=== PATIENT | female | born 1995 | race Caucasian/White ===

== ENCOUNTER 2019-11-03 05:30 | Emergency (ER) | payer BC, OTHER ==
[~2019-11-03] VITALS: Ht 160 cm; Wt 68.2 kg
[~2019-11-03 05:30] MED LIST: ACHD5005 PO; NORE-4 PO
--- OUTSIDE RECORDS SUMMARY | 2019-11-03 05:36 | XMS REPORT | Continuity of Care Document ---
Author Organization Unknown Address Unknown Phone Unavailable Allergies Active Description Code Type Severity Reaction Onset Reported/Identified Relationship to Patient Clinical Status Yes SULFA SULFA Unknown N/A 10/01/2013 Medications There is no data. Problems Date Dx Coded Attending Type Code Diagnosis Diagnosed By 10/02/2013 JAROD SHANE, TEJA Martínez Ot 540.9 Procedures There is no data. Results There is no data. Encounters ACCT No. Visit Date/Time Discharge Status Pt. Type Provider Facility Loc./Unit Complaint [id number] 02/21/2019 09:03:00 019 23:59:59 CLS Preadmit JOHNNY SANTIZO V [facility] RAD ENLARGED THYROID [id number] 10/01/2013 10:48:00 014 10:15:00 DIS Inpatient JAROD SHANE, TEJA Martínez Via [facility] 4TH
--- NOTE | 2019-11-03 05:44 | ED Chest Pain ---
General Chief Complaint: General Problems/Pain Stated Complaint: SOB,CP,SHAKES Source: patient Exam Limitations: no limitations (ELAYNE BERMEO) History of Present Illness Date Seen by Provider: Nov 03, 2019 Time Seen by Provider: 05:33 Initial Comments Patient resents ER by private conveyance with chief complaint of chest pain shortness of breath and tightness in her chest and momentary nausea but woke her from sleep about 3:30 in the morning. It started getting worse just before they headed out to the ER and started to improve by the time she arrived here. Her grandparents who she lives with wanted her to get it checked out. She does not have a history of coronary disease, heart disease, pericarditis, lung disease but she does have a history of generalized anxiety disorder with occasional panic attacks. She's never had one this bad nor has one of her woke her up from sleep. She's having no abdominal pain or nausea now. No fevers chills cough shortness of breath sweats, travel, recent stressful situations. Yesterday she had a couple beers with friends and occasionally smokes cannabis. She is on control from [employer]. No palpitations or flutters or feeling like she was going to pass out. She has no swelling in her legs, pain in her calves, periods of inactivity or recent surgeries. No history of malignancy. Historically she's had her appendix out. (ELAYNE BERMEO) Allergies and Home Medications Allergies Uncoded Allergies: SULFA (Allergy, Unknown, 10/01/13) Home Medications Hydrocodone Bit/Acetaminophen 1 Tab Tab, 1-2 TAB PO Q4H PRN for PAIN Prescribed by: LINDA HUTCHISON on 10/02/13 0946 Noreth-Ethinyl Estradiol/Iron 1 Each Tab.chew, 1 TAB PO DAILY, (Reported) Patient Home Medication List Home Medication List Reviewed: Yes (ELAYNE BERMEO) Review of Systems Review of Systems Constitutional: No chills, No diaphoresis EENTM: No Blurred Vision, No Double Vision Respiratory: Denies Cough; Shortness of Air Cardiovascular: Chest Pain; Denies Edema, Denies Irregular Heart Rate, Denies Lightheadedness, Denies Palpitations, Denies Syncope Gastrointestinal: See HPI; Denies Abdominal Pain, Denies Constipated, Denies Diarrhea, Denies Nausea, Denies Vomiting Genitourinary: Denies Burning, Denies Discharge Musculoskeletal: No back pain, No joint pain Psychiatric/Neurological: See HPI, Anxiety; Denies Depressed, Denies Headache, Denies Numbness, Denies Paresthesia (ELAYNE BERMEO) All Other Systems Reviewed Negative Unless Noted: Yes (ELAYNE BERMEO) Past Ljbuflg-Cfgmjz-Cpkwdt Hx Patient Social History Alcohol Use: Occasionally Uses Alcohol Beverage of Choice: Beer Recreational Drug Use: Yes Drug of Choice: cannabis Smoking Status: Former Smoker Recent Foreign Travel: No Contact w/Someone Who Travel: No (ELAYNE BERMEO) Family Medical History Family history: Allergy 19 MOTHER Family history: Hypertension 19 MOTHER No Family History of: Abdominal aortic aneurysm [place]'s disease Alcoholism Aphasia Cancer Cancer of colon Cataract Chest pain Congenital heart disease Congestive heart failure Cystic fibrosis Dementia Dysphagia Family history: Alzheimer's disease Family history: Arthritis Family history: Asthma Family history: Breast disease Family history: Cardiovascular disease Family history: Coronary thrombosis Family history: Diabetes mellitus Family history: Gastrointestinal disease Family history: Glaucoma Family history: Osteoporosis Family history: Thyroid disorder Headache Hearing loss Heart disease Hereditary disease History of - anemia History of - disorder History of - respiratory disease History of drug abuse Human immunodeficiency virus (HIV) seropositivity Hypercholesterolemia Infertile Kidney disease Malignant neoplasm of lung Myocardial infarction Parkinson's disease Prostate cancer Psychotic disorder Seizure disorder Stroke Tuberculosis Visual impairment Physical Exam Vital Signs Vital Signs - First Documented 11/03/19 05:40 Temp 36.7 Pulse 110 Resp 20 B/P (MAP) 130/70 (90) Pulse Ox 99 O2 Delivery Room Air (LING GILMORE MD) Vital Signs Capillary Refill : (ELAYNE BERMEO) Height, Weight, BMI Height: 5'0.00" Weight: 119lbs. 4.0oz. 54.564572mb; BMI Method: General Appearance: WD/WN, Anxious, Mild Distress HEENT: PERRL/EOMI, Pharynx Normal, Moist Mucous Membranes Neck: Full Range of Motion, Normal Inspection, Non Tender, Supple Respiratory: Lungs Clear, Normal Breath Sounds, No Accessory Muscle Use, No Respiratory Distress Cardiovascular: Regular Rate, Rhythm, Normal Peripheral Pulses, Tachycardia (110) Gastrointestinal: Normal Bowel Sounds, Non Tender, Soft Extremity: Normal Capillary Refill, Normal Inspection, No Pedal Edema Neurologic/Psychiatric: Alert, Oriented x3, No Motor/Sensory Deficits, lining baster II- XII Norm as Tested, Other (anxious affect) Skin: Normal Color, Warm/Dry (ELAYNE BERMEO) Progress/Results/Core Measures Results/Orders Lab Results Laboratory Tests Test 11/03/19 05:44 Range/Units White Blood Count 7.8 4.3-11.0 10^3/uL Red Blood Count 4.73 4.35-5.85 10^6/uL Hemoglobin 15.0 11.5-16.0 G/DL Hematocrit 44 35-52 % Mean Corpuscular Volume 93 80-99 FL Mean Corpuscular Hemoglobin 32 25-34 PG Mean Corpuscular Hemoglobin Concent 34 32-36 G/DL Red Cell Distribution Width 12.9 10.0-14.5 % Platelet Count 338 130-400 10^3/uL Mean Platelet Volume 9.3 7.4-10.4 FL Neutrophils (%) (Auto) 36 L 42-75 % Lymphocytes (%) (Auto) 54 H 12-44 % Monocytes (%) (Auto) 7 0-12 % Eosinophils (%) (Auto) 2 0-10 % Basophils (%) (Auto) 1 0-10 % Neutrophils # (Auto) 2.8 1.8-7.8 X 10^3 Lymphocytes # (Auto) 4.2 H 1.0-4.0 X 10^3 Monocytes # (Auto) 0.5 0.0-1.0 X 10^3 Eosinophils # (Auto) 0.1 0.0-0.3 10^3/uL Basophils # (Auto) 0.1 0.0-0.1 10^3/uL D-Dimer 0.37 0.00-0.49 UG/ML Sodium Level 139 135-145 MMOL/L Potassium Level 3.6 3.6-5.0 MMOL/L Chloride Level 102 98-107 MMOL/L Carbon Dioxide Level 21 21-32 MMOL/L Anion Gap 16 H 5-14 MMOL/L Blood Urea Nitrogen 10 7-18 MG/DL Creatinine 0.82 0.60-1.30 MG/DL Estimat Glomerular Filtration Rate > 60 BUN/Creatinine Ratio 12 Glucose Level 112 H 70-105 MG/DL Calcium Level 9.6 8.5-10.1 MG/DL Corrected Calcium 9.2 8.5-10.1 MG/DL Total Bilirubin 0.4 0.1-1.0 MG/DL Aspartate Amino Transf (AST/SGOT) 34 5-34 U/L Alanine Aminotransferase (ALT/SGPT) 48 0-55 U/L Alkaline Phosphatase 55 40-136 U/L Troponin I < 0.028 <0.028 NG/ML C-Reactive Protein High Sensitivity 0.34 0.00-0.50 MG/DL Total Protein 7.7 6.4-8.2 GM/DL Albumin 4.5 3.2-4.5 GM/DL (LING GILMORE MD) Vital Signs/I&O 11/03/19 05:40 Temp 36.7 Pulse 110 Resp 20 B/P (MAP) 130/70 (90) Pulse Ox 99 O2 Delivery Room Air (LING GILMORE MD) Progress Progress Note : Time: 05:49 Progress Note The patient appears anxious and has a history of generalized anxiety with panic disorder. It is unusual that panic disorder would wake someone from sleep however. Her tachycardia is also concerning so we'll observe that. This examiner left the room after the initial interview and allow the nurses to obtain the EKG and her tachycardia resolved within 10 minutes from 110 down to 80s. She is still having some chest tightness but no clinical evidence for a DVT. Because of her hormone use and she only recently quit smoking last week we did apply the Well's score of 1.5 for PE. She had 2 PERC criteria so while she is considered low risk less than 1.5% we will collect a d-dimer. Chest x-ray and troponin can help rule out pneumonia, myocarditis/pericarditis. She does not want anything for her discomfort at this time. (ELAYNE BERMEO) Progress Note : Progress Note 0628: I have reviewed the labs and x-ray and have reexamined the patient. Overall she is feeling much better. D-dimer is negative. Heart rate is in the 90s now. She did spend some time at [place] yesterday and in the sun. She may have component of dehydration. That being said she feels back to normal now and there are no concerning findings so we'll discharge her home. I did discuss with her about return precautions and follow-up. Patient verbalize understanding instructions and agreement with plan. (LING GILMORE MD) Initial ECG Impression Date: Nov 03, 2019 Initial ECG Impression Time: 05:40 Initial ECG Rate: 82 Initial ECG Rhythm: Normal Sinus Initial ECG Intervals: Normal Initial ECG Impression: Normal Initial ECG Comparisson: No Previous ECG Available Comment Normal sinus rhythm without clinically relevant ST-T wave changes. (ELAYNE BERMEO) Diagnostic Imaging Diagonstic Imaging: Xray Plain Films/CT/US/NM/MRI: chest (1v) Reviewed: Reviewed by Me (ELAYNE BERMEO) Comments no acute findings (LING GILMORE MD) Transfer of Care Time: 06:00 Care transferred to: Dr. Gilmore (ELAYNE BERMEO) Departure Impression Primary Impression: Chest pain Qualified Codes: R07.9 - Chest pain, unspecified Additional Impression: Palpitations Disposition: HOME, SELF-CARE Condition: Improved Departure-Patient Inst. Decision time for Depature: 06:31 (LING GILMORE MD) Referrals: NO,LOCAL PHYSICIAN (PCP/Family) Primary Care Physician Patient Instructions: Chest Pain (DC), Palpitations (DC) Add. Discharge Instructions: All discharge instructions reviewed with patient and/or family. Voiced understanding. Follow-up with your DrDeyanira in a few days for recheck and further evaluation. You may be a little dehydrated so you should try to drink a little extra fluid today. Return to normal diet. Return for worse pain, fever, vomiting, weakness, breathing problems or other concerns as needed. ELAYNE BERMEO Nov 03, 2019 05:44 LING GILMORE MD Nov 03, 2019 06:32
[2019-11-03 05:52] LABS: BASOPHILS # (AUTO) 0.1 10^3/uL (0.0-0.1); BASOPHILS % (AUTO) 1 % (0-10); EOSINOPHILS # (AUTO) 0.1 10^3/uL (0.0-0.3); EOSINOPHILS % (AUTO) 2 % (0-10); HEMATOCRIT 44 % (35-52); LYMPHOCYTES # (AUTO) 4.2 X 10^3 (1.0-4.0); LYMPHOCYTES % (AUTO) 54 % (12-44); MEAN CORPUSCULAR HEMOGLOBIN 32 PG (25-34); MEAN CORPUSCULAR HGB CONC 34 G/DL (32-36); MEAN CORPUSCULAR VOLUME 93 FL (80-99); MEAN PLATELET VOLUME 9.3 FL (7.4-10.4); MONOCYTES # (AUTO) 0.5 X 10^3 (0.0-1.0); MONOCYTES % (AUTO) 7 % (0-12); NEUTROPHILS # (AUTO) 2.8 X 10^3 (1.8-7.8); NEUTROPHILS % (AUTO) 36 % (42-75); PLATELET COUNT 338 10^3/uL (130-400); RED CELL DISTRIBUTION WIDTH 12.9 % (10.0-14.5); WHITE BLOOD COUNT 7.8 10^3/uL (4.3-11.0)
[2019-11-03 06:00] LABS: ALBUMIN 4.5 GM/DL (3.2-4.5); CHLORIDE 102 MMOL/L (98-107); POTASSIUM 3.6 MMOL/L (3.6-5.0); SODIUM 139 MMOL/L (135-145)
[2019-11-03 06:01] LABS: CALCIUM 9.6 MG/DL (8.5-10.1)
[2019-11-03 06:03] LABS: GLUCOSE 112 MG/DL (70-105); TOTAL PROTEIN 7.7 GM/DL (6.4-8.2)
[2019-11-03 06:04] LABS: BILIRUBIN,TOTAL 0.4 MG/DL (0.1-1.0); CARBON DIOXIDE 21 MMOL/L (21-32)
[2019-11-03 06:06] LABS: ALKALINE PHOSPHATASE 55 U/L (40-136); CREATININE SERUM 0.82 MG/DL (0.60-1.30); GFR ESTIMATED > 60
[2019-11-03 06:07] LABS: BUN/CREATININE RATIO 12
[2019-11-03 06:09] LABS: ALANINE AMINOTRANSFERASE 48 U/L (0-55)
[2019-11-03 06:38] VITALS: BP 125/72
--- NOTE | 2019-11-03 07:13 | Diagnostic Imaging Report ---
INDICATION: Chest pain COMPARISON: None available TECHNIQUE: Single radiograph of the chest dated 11/03/2019. FINDINGS: The cardiac silhouette and pulmonary vasculature within normal limits. The lungs are clear. No pleural effusion. No pneumothorax. No acute osseous abnormality. IMPRESSION: No acute cardiopulmonary abnormality. Dictated by: Dictated on workstation # [id number]
== END 2019-11-03 06:39 | disposition home or self-care (01) ==
LOC: EDUNIT# 05:30 → ER 05:32
DX: R07.9 Chest pain, unspecified (principal); R00.2 Palpitations; Z88.2 Allergy status to sulfonamides; Z87.891 Personal history of nicotine dependence; Z82.49 Family history of ischemic heart disease and other diseases of the circulatory system
CPT/HCPCS: 36415; 71045; 80053; 84484; 84703; 85025; 85379; 86141; 93005

== ENCOUNTER 2022-08-17 14:19 | Inpatient (IN) | payer BC, OTHER ==
[2022-08-17] VITALS (17 sets, daily range): BP systolic 116–162; BP diastolic 60–101
[~2022-08-17] VITALS: Ht 152.4 cm; Wt 92.4 kg
[2022-08-17 14:43] LABS: BILIRUBIN,URINE NEGATIVE (NEGATIVE); CLARITY,URINE CLEAR; COLOR,URINE YELLOW; GLUCOSE, URINE (UA) NEGATIVE (NEGATIVE); KETONES,URINE NEGATIVE (NEGATIVE); LEUKOCYTE ESTERASE ,URINE 1+ (NEGATIVE); NITRITE,URINE NEGATIVE (NEGATIVE); PROTEIN,URINE NEGATIVE (NEGATIVE)
[2022-08-17] MEDS ORDERED: PREN-37 PO (14:45)
[2022-08-17 14:51] LABS: BACTERIA,URINE FEW /HPF
[2022-08-17 15:01] LABS: URINE CREATININE FOR RATIO 33 MG/DL (30-125); URINE PROTEIN FOR RATIO ONLY < 6 MG/DL (6-12)
[2022-08-17 15:04] LABS: BASOPHILS # (AUTO) 0.1 10^3/uL (0.0-0.1); BASOPHILS % (AUTO) 0 % (0-10); EOSINOPHILS # (AUTO) 0.1 10^3/uL (0.0-0.3); EOSINOPHILS % (AUTO) 1 % (0-10); HEMATOCRIT 37 % (35-52); HEMOGLOBIN 12.5 g/dL (11.5-16.0); LYMPHOCYTES % (AUTO) 18 % (12-44); MEAN CORPUSCULAR HEMOGLOBIN 32 pg (25-34); MEAN CORPUSCULAR HGB CONC 34 g/dL (32-36); MEAN CORPUSCULAR VOLUME 92 fL (80-99); MEAN PLATELET VOLUME 9.8 fL (9.0-12.2); MONOCYTES # (AUTO) 0.6 X 10^3 (0.0-1.0); MONOCYTES % (AUTO) 5 % (0-12); NEUTROPHILS # (AUTO) 8.3 X 10^3 (1.8-7.8); NEUTROPHILS % (AUTO) 75 % (42-75); PLATELET COUNT 278 10^3/uL (130-400); WHITE BLOOD COUNT 11.1 10^3/uL (4.3-11.0)
[2022-08-17 15:23] LABS: ALBUMIN 3.2 GM/DL (3.2-4.5); BILIRUBIN,TOTAL 0.8 MG/DL (0.1-1.0); CALCIUM 8.9 MG/DL (8.5-10.1); CREATININE SERUM 0.73 MG/DL (0.60-1.30); POTASSIUM 2.8 MMOL/L (3.6-5.0); TOTAL PROTEIN 6.3 GM/DL (6.4-8.2); URIC ACID 4.6 MG/DL (2.6-7.2)
[2022-08-17] MEDS ORDERED: LIDOCAINE 1% INJ 20 ML VIAL IJ PRN (17:00)
[2022-08-17] MEDS ORDERED: MINERAL OIL 30 ML UDC TOP PRN (17:00)
[2022-08-17] MEDS ORDERED: LIDOCAINE 1% INJ 10 ML VIAL INJ PRN (17:30)
--- NOTE | 2022-08-17 18:20 | History & Physical-OB ---
OB - Chief Complaint & HPI Date/Time Date of Admission: Date of Admission: Aug 17, 2022 at 16:06 Date seen by a Provider: Aug 17, 2022 Time Seen by a Provider: 17:25 Chief Complaint/History OB-Reason for Admission/Chief: Induction of Labor Hx : 1 Hx Para: 0 Hx Last Menstrual Period: 12/05/21 Estimated Date of Conception: 09/05/22 Expected Date of Delivery: Sep 05, 2022 Gestational Age in Weeks: 37 Gestational Age in Days: 2 Indication for induction: medical complication (PREECLAMPSIA WITH SEVERE FEATURES) Other reason for admission: PREECLAMPSIA WITH SEVERE FEATURES Admission Nurse Assessment Rev: Yes History of Labs : MBT O POS PNAS NEG RUBELLA NON-IMMUNE RPR NR HIV NR HBSAG NR HCV NR AFP/MULTIPLE MARKER NEG TSH NORMAL 1 HOUR GLUCOLA 109 UDS NEG PAP NEG GC/CT NEG X 2 GBS NEG TODAY: HCT 37 PLT 278 CR 0.73 K 2.8 AST 80 ALT 176 LDH 205 UA NEGATIVE PROTEIN (P/C NOT RUN DUE TOO LITTLE PROTEIN) Allergies and Home Medications Allergies Uncoded Allergies: SULFA (Allergy, Unknown, 10/01/13) Patient Home Medication List Home Medication List Reviewed: Yes Vit/Iron Fumarate/FA ( Tablet) 27 Mg Iron-800 Mcg Tablet, 1 EACH PO DAILY, (Reported) Entered as Reported by: ELIZABETH RAWLS on 08/17/22 1445 Last Action: New Order Discontinued Medications Hydrocodone Bit/Acetaminophen (Lortab 5 Mg Tablet) 1 Tab Tab, 1-2 TAB PO Q4H PRN for PAIN Discontinued Reason: No Longer Taking Prescribed by: LINDA HUTCHISON on 10/02/13 0946 Last Action: Discontinued Noreth-Ethinyl Estradiol/Iron ([place] Fe Chewable Tablet) 1 Each Tab.chew, 1 TAB PO DAILY, (Reported) Discontinued Reason: No Longer Taking Entered as Reported by: ETIENNE PANDEY on 10/01/13 1302 Last Action: Discontinued OB - History Hx of Present Care: Yes Obstetrical Complications: Pre-eclampsia Information Induced Hypertension: Yes Maternal Gestational Diabetes: No Hemorrhage: No Obstetrical History Hx : 1 Hx Para: 0 Hx Total # of Abortions (Spona: 0 Delivery History Hx Blood Disorders: No Patient Past Medical History THYROID NODULE (NO SURGERY) Social History/Family History Alcohol Use: Denies Use Recreational Drug Use: No 2nd Hand Smoke Exposure: No Immunizations Influenza Vaccine Up-to-Date: Yes; Up-to-Date COVID19 Vaccine [employer]: MODERNA Tetanus Booster (TDap): Less than 5yrs Rubella: not immune RPR/VDRL: Negative GBS Status: Negative HBsAG: Negative OB - Admission Exam Physical Exam Vitals: Vital Signs 08/17/22 08/17/22 14:55 17:02 Temp 37.1 Pulse 90 Resp 18 B/P (MAP) 149/88 Pulse Ox 98 O2 Delivery Room Air HEENT: Moist Membranes Heart: Rhythm Normal Lungs: Clear Abdomen: Gravid Extremities: Edema Reflexes: Hyperreflexia Present Cervical Dilatation: None Effacement: Other (60%) Station: -3 Membranes: Intact Heart Rate: 130's Accelerations: Accelerations Present Decelerations: No Decelerations Short Term Variability: Present Lead Custodian Variability: Average (6-25) Contractions on Admission: 6-10 Minutes Apart Intensity: Mild Labs Laboratory Tests Test 08/17/22 14:35 08/17/22 14:52 Range/Units Urine Color YELLOW Urine Clarity CLEAR Urine pH 7.0 5-9 Urine Specific [place] <=1.005 1.016-1.022 Urine Protein NEGATIVE NEGATIVE Urine Glucose (UA) NEGATIVE NEGATIVE Urine Ketones NEGATIVE NEGATIVE Urine Nitrite NEGATIVE NEGATIVE Urine Bilirubin NEGATIVE NEGATIVE Urine Urobilinogen 0.2 < = 1.0 MG/DL Urine Leukocyte Esterase 1+ H NEGATIVE Urine RBC (Auto) NEGATIVE NEGATIVE Urine RBC NONE /HPF Urine WBC 5-10 H /HPF Urine Squamous Epithelial Cells 10-25 H /HPF Urine Crystals NONE /LPF Urine Bacteria FEW H /HPF Urine Casts NONE /LPF Urine Mucus NEGATIVE /LPF Urine Culture Indicated YES Urine Creatinine 33 30-125 MG/DL Urine Protein/Creatinine Ratio White Blood Count 11.1 H 4.3-11.0 10^3/uL Red Blood Count 3.97 3.80-5.11 10^6/uL Hemoglobin 12.5 11.5-16.0 g/dL Hematocrit 37 35-52 % Mean Corpuscular Volume 92 80-99 fL Mean Corpuscular Hemoglobin 32 25-34 pg Mean Corpuscular Hemoglobin Concent 34 32-36 g/dL Red Cell Distribution Width 13.0 10.0-14.5 % Platelet Count 278 130-400 10^3/uL Mean Platelet Volume 9.8 9.0-12.2 fL Immature Granulocyte % (Auto) 1 % Neutrophils (%) (Auto) 75 42-75 % Lymphocytes (%) (Auto) 18 12-44 % Monocytes (%) (Auto) 5 0-12 % Eosinophils (%) (Auto) 1 0-10 % Basophils (%) (Auto) 0 0-10 % Neutrophils # (Auto) 8.3 H 1.8-7.8 X 10^3 Lymphocytes # (Auto) 2.0 1.0-4.0 X 10^3 Monocytes # (Auto) 0.6 0.0-1.0 X 10^3 Eosinophils # (Auto) 0.1 0.0-0.3 10^3/uL Basophils # (Auto) 0.1 0.0-0.1 10^3/uL Immature Granulocyte # (Auto) 0.1 0.0-0.1 10^3/uL Sodium Level 140 135-145 MMOL/L Potassium Level 2.8 L 3.6-5.0 MMOL/L Chloride Level 108 H 98-107 MMOL/L Carbon Dioxide Level 19 L 21-32 MMOL/L Anion Gap 13 5-14 MMOL/L Blood Urea Nitrogen 5 L 7-18 MG/DL Creatinine 0.73 0.60-1.30 MG/DL Estimat Glomerular Filtration Rate 115 BUN/Creatinine Ratio 7 Glucose Level 94 70-105 MG/DL Uric Acid 4.6 2.6-7.2 MG/DL Calcium Level 8.9 8.5-10.1 MG/DL Corrected Calcium 9.5 8.5-10.1 MG/DL Total Bilirubin 0.8 0.1-1.0 MG/DL Aspartate Amino Transf (AST/SGOT) 80 H 5-34 U/L Alanine Aminotransferase (ALT/SGPT) 176 H 0-55 U/L Alkaline Phosphatase 156 H 40-136 U/L Lactate Dehydrogenase 205 125-220 U/L Total Protein 6.3 L 6.4-8.2 GM/DL Albumin 3.2 3.2-4.5 GM/DL OB - Assessment/Plan/Diagnosis Assessment Assessment: other Admission Dx # 37 2/7 WEEKS # PREECLAMPSIA WITH SEVERE FEATURES Admission Status: Inpatient Order (span 2 midnights) Reason for Inpatient Admission: #37 2/7 WEEK #PREECLAMPSIA WITH SEVERE FEATURES Plan Plan: Induction Induction Method: per Misoprostol Protocol Reason for Induction: ABOVE. WILL HOLD OFF ON STARTING IV MAGNESIUM SULFATE UNTIL LABOR Other Plan # CYTOTEC 25 MCG VAGINALLY Q4 HRS FOR CX RIPENING # HOLD OFF ON IV MAGNESIUM PROPHYLAXIS AT THIS TIME GIVEN NEGATIVE ROS, NO DIFFERENTIAL REPAIRER SX (NO H/A OR VISUAL CHANGES) AND BP NOT IN SEVERE RANGE, IN PATIENT WITH CLOSED CERVIX..WILL START SOONER IF PATIENT REPORTS DIFFERENTIAL REPAIRER SX OR BP REACH SEVERE RANGE. # CONSULTED PHARMACY REGARDING CORRECTING LOW K+ ON ADMISSION # RE-CHECK PREECLAMPTIC LABS Q 12 HOURS.... NEXT SET AT 0500 # PATIENT UNDERSTANDS ALL ABOVE AND AGREES WITH HOLDING OFF ON IV MAGNESIUM SULFATE AT THIS TIME. COUNSELED REGARDING RISK OF PROLONGED IV MAGNESIUM SULFATE ON BONE. ALSO UNDERSTANDS GIVEN CONDITION SHE IS AT SMALL, BUT REAL RISK OF ECLAMPTIC SEIZURES. #CATEGORY I FHR # GBS NEG # RN IN ROOM DURING PATIENT ENCOUNTER. PATIENT AND HER SPOUSE WITHOUT QUESTIONS OR CONCERNS AT THIS TIME. MONIQUE BLAKE DO Aug 17, 2022 18:20
[2022-08-17] MEDS: LACTATED RINGERS 1,000 ML IV SCH (18:30)
[2022-08-17] MEDS: POTASSIUM CL 10MEQ/50ML IVPB 50 ML IV SCH ×5 (19:18→23:48)
[2022-08-17] MEDS: D5 LR IV SOLUTION 1,000 ML IV SCH (20:36)
[2022-08-17] MEDS: CATHETER FLUSH 10 ML SYR IV SCH (22:13)
[2022-08-18] VITALS (65 sets, daily range): BP systolic 115–219; BP diastolic 69–130
[2022-08-18] MEDS: POTASSIUM CL 10MEQ/50ML IVPB 50 ML IV SCH ×3 (00:52→02:57)
[2022-08-18] MEDS: D5 LR IV SOLUTION 1,000 ML IV SCH ×3 (04:11→20:00)
[2022-08-18 06:03] LABS: BASOPHILS # (AUTO) 0.1 10^3/uL (0.0-0.1); BASOPHILS % (AUTO) 1 % (0-10); EOSINOPHILS # (AUTO) 0.1 10^3/uL (0.0-0.3); EOSINOPHILS % (AUTO) 1 % (0-10); HEMATOCRIT 37 % (35-52); HEMOGLOBIN 12.4 g/dL (11.5-16.0); LYMPHOCYTES # (AUTO) 2.9 10^3/uL (1.0-4.0); LYMPHOCYTES % (AUTO) 23 % (12-44); MEAN CORPUSCULAR HEMOGLOBIN 32 pg (25-34); MEAN CORPUSCULAR HGB CONC 34 g/dL (32-36); MEAN CORPUSCULAR VOLUME 93 fL (80-99); MEAN PLATELET VOLUME 9.9 fL (9.0-12.2); MONOCYTES # (AUTO) 0.7 10^3/uL (0.0-1.0); MONOCYTES % (AUTO) 6 % (0-12); NEUTROPHILS # (AUTO) 8.5 10^3/uL (1.8-7.8); NEUTROPHILS % (AUTO) 69 % (42-75); PLATELET COUNT 262 10^3/uL (130-400); WHITE BLOOD COUNT 12.4 10^3/uL (4.3-11.0)
[2022-08-18 06:27] LABS: ALBUMIN 2.9 GM/DL (3.2-4.5); BILIRUBIN,TOTAL 1.1 MG/DL (0.1-1.0); CALCIUM 8.2 MG/DL (8.5-10.1); CREATININE SERUM 0.65 MG/DL (0.60-1.30); POTASSIUM 3.3 MMOL/L (3.6-5.0); TOTAL PROTEIN 5.7 GM/DL (6.4-8.2); URIC ACID 4.8 MG/DL (2.6-7.2)
[2022-08-18] MEDS: CATHETER FLUSH 10 ML SYR IV SCH (06:43)
[2022-08-18] MEDS ORDERED: CALCIUM GLUC. 10% 4.65 MEQ/10 ML VIAL IV PRN (08:45)
[2022-08-18] MEDS: LACTATED RINGERS 1,000 ML IV SCH (08:45)
[2022-08-18] MEDS ORDERED: OXYTOCIN PRE-MIX DRIP 500 ML IV SCH ×2 (08:45→17:30)
[2022-08-18] MEDS ORDERED: MAGNESIUM 4 GM/100 ML IVPB 100 ML IV ONE (09:01)
[2022-08-18] MEDS: MAGNESIUM SULFATE DRIP 500 ML IV SCH (09:07)
[2022-08-18] MEDS ORDERED: BUTORPHANOL INJ 2 MG/ML (STADOL) VIAL IV PRN (09:15)
[2022-08-18] MEDS ORDERED: fentaNYL 2 mcg/ml BUPIVA 0.125 100 ML ONE (09:21)
[2022-08-18] MEDS ORDERED: fentaNYL INJ 100 MCG/2 ML AMP ONE (09:36)
[2022-08-18] MEDS ORDERED: BUPIVACAINE 0.25% 10 ML (SENSORCAINE) VIAL ONE (10:00)
--- NOTE | 2022-08-18 10:12 | Labor Progress Note ---
Labor Progress Note Labor Progress Note Date Seen by Provider: Aug 18, 2022 Time Seen by Provider: 08:30 Subjective: Pt without h/a or visual changes overnight. Did have a few BP systolic in 160s range that improved on her left side, also some tingling in her face, suspect du e to fluid retention. BP at time of this note in 130s/80s. Patient has been getting Cytotec 25 mcg vaginally q4h since admission last night. Preeclamptic labs essentially unchanged since admission, stable, not worse, LFT continue to mildly elevated. Objective: (Can we insert 24 hour vitals here?) Cervical exam: 2 Consistency: moderate Position: mid Presentation: vertex heart tones: [130] beats per minute, [mod] variability, +accels, no decels Tocometer: mild contractions q3-4 minutes. Assessment/Plan: Wilber Greene is a (27 /Para 1 / 0,Gestational Age (wks)37 3/7 here for cervical ripening/IOL for preeclampsia with severe features. Patient underwent AROM clear with IUPC placed at 0835. Given labile BP at times, facial tingling, now AROM on Pitocin, starting patient on IV Magnesium sulfate prophylaxis (4 gm bolus followed by 1 gm per hour) Patient is getting epidural. Recheck labs q12 hours. Vitals - Labs Vital Signs - I&O Vital Signs Date Time Temp Pulse Resp B/P (MAP) Pulse Ox O2 Delivery O2 Flow Rate FiO2 08/18/22 08:00 65 18 120/77 (91) 98 Room Air 08/18/22 07:15 70 18 122/76 (91) 96 Room Air 08/18/22 06:14 37.0 69 18 138/73 (94) 99 Room Air 08/18/22 05:38 37.0 74 18 123/76 (92) 98 Room Air 08/18/22 05:03 69 18 163/94 (117) 98 Room Air 08/18/22 04:04 37.0 70 16 165/92 (116) Room Air 08/18/22 03:03 36.9 73 16 146/85 (105) Room Air 08/18/22 02:03 37.0 62 18 129/71 (90) Room Air 08/18/22 01:11 37.0 72 18 153/86 (108) Room Air 08/18/22 00:02 37.0 70 18 138/69 (92) Room Air 08/17/22 23:02 37.0 78 18 141/82 (101) Room Air 08/17/22 22:51 37.0 85 18 156/99 (118) 98 Room Air 08/17/22 21:45 37.0 68 18 155/93 (113) Room Air 08/17/22 20:45 75 18 124/68 (86) Room Air 08/17/22 19:45 37.0 75 18 116/60 (78) Room Air 08/17/22 19:02 93 18 132/78 (96) Room Air 08/17/22 18:00 91 18 147/88 (107) Room Air 08/17/22 17:02 37.1 90 18 98 Room Air 08/17/22 17:00 90 18 144/80 (101) Room Air 08/17/22 16:00 102 18 145/84 (104) Room Air 08/17/22 15:45 75 18 147/93 (111) Room Air 08/17/22 15:30 101 18 138/88 (105) Room Air 08/17/22 15:14 104 18 143/90 (107) Room Air 08/17/22 15:01 90 18 152/90 (110) Room Air 08/17/22 14:55 37.3 90 18 149/88 96 Room Air 08/17/22 14:45 90 18 149/88 (108) 94 Room Air 08/17/22 14:30 37.3 98 18 162/101 (121) 96 Room Air I & O 08/18/22 07:00 Intake Total 1400 ml Balance 1400 ml Labs Laboratory Tests 08/17/22 14:35: Urine Color YELLOW, Urine Clarity CLEAR, Urine pH 7.0, Urine Specific [place] <=1.005, Urine Protein NEGATIVE, Urine Glucose (UA) NEGATIVE, Urine Ketones NEGATIVE, Urine Nitrite NEGATIVE, Urine Bilirubin NEGATIVE, Urine Urobilinogen 0.2, Urine Leukocyte Esterase 1+H, Urine RBC (Auto) NEGATIVE, Urine RBC NONE, Urine WBC 5-10H, Urine Squamous Epithelial Cells 10-25H, Urine Crystals NONE, Urine Bacteria FEWH, Urine Casts NONE, Urine Mucus NEGATIVE, Urine Culture Indicated YES, Urine Creatinine 33, Urine Protein/Creatinine Ratio 08/17/22 14:52: White Blood Count 11.1H, Red Blood Count 3.97, Hemoglobin 12.5, Hematocrit 37, Mean Corpuscular Volume 92, Mean Corpuscular Hemoglobin 32, Mean Corpuscular Hemoglobin Concent 34, Red Cell Distribution Width 13.0, Platelet Count 278, Mean Platelet Volume 9.8, Immature Granulocyte % (Auto) 1, Neutrophils (%) (Auto) 75, Lymphocytes (%) (Auto) 18, Monocytes (%) (Auto) 5, Eosinophils (%) (Auto) 1, Basophils (%) (Auto) 0, Neutrophils # (Auto) 8.3H, Lymphocytes # (Auto) 2.0, Monocytes # (Auto) 0.6, Eosinophils # (Auto) 0.1, Basophils # (Auto) 0.1, Immature Granulocyte # (Auto) 0.1, Sodium Level 140, Potassium Level 2.8L, Chloride Level 108H, Carbon Dioxide Level 19L, Anion Gap 13, Blood Urea Nitrogen 5L, Creatinine 0.73, Estimat Glomerular Filtration Rate 115, BUN/Creatinine Ratio 7, Glucose Level 94, Uric Acid 4.6, Calcium Level 8.9, Corrected Calcium 9.5, Total Bilirubin 0.8, Aspartate Amino Transf (AST/SGOT) 80H, Alanine Aminotransferase (ALT/SGPT) 176H, Alkaline Phosphatase 156H, Lactate Dehydrogenase 205, Total Protein 6.3L, Albumin 3.2 08/18/22 05:50: White Blood Count 12.4H, Red Blood Count 3.93, Hemoglobin 12.4, Hematocrit 37, Mean Corpuscular Volume 93, Mean Corpuscular Hemoglobin 32, Mean Corpuscular Hemoglobin Concent 34, Red Cell Distribution Width 12.9, Platelet Count 262, Mean Platelet Volume 9.9, Immature Granulocyte % (Auto) 1, Neutrophils (%) (Auto) 69, Lymphocytes (%) (Auto) 23, Monocytes (%) (Auto) 6, Eosinophils (%) (Auto) 1, Basophils (%) (Auto) 1, Neutrophils # (Auto) 8.5H, Lymphocytes # (Auto) 2.9, Monocytes # (Auto) 0.7, Eosinophils # (Auto) 0.1, Basophils # (Auto) 0.1, Immature Granulocyte # (Auto) 0.1, Sodium Level 139, Potassium Level 3.3L, Chloride Level 109H, Carbon Dioxide Level 19L, Anion Gap 11, Blood Urea Nitrogen 4L, Creatinine 0.65, Estimat Glomerular Filtration Rate 123, BUN/Creatinine Ratio 6, Glucose Level 88, Uric Acid 4.8, Calcium Level 8.2L, Corrected Calcium 9.1, Total Bilirubin 1.1H, Aspartate Amino Transf (AST/SGOT) 99H, Alanine Aminotransferase (ALT/SGPT) 189H, Alkaline Phosphatase 164H, Lactate Dehydrogenase 188, Total Protein 5.7L, Albumin 2.9L MONIQUE BLAKE DO Aug 18, 2022 10:12
[2022-08-18] MEDS ORDERED: MEPIVACAINE (CARBOCAINE) 2% 50 ML VIAL ONE (16:06)
--- NOTE | 2022-08-18 17:20 | OB Labor & Delivery Record ---
L&D History Date of Service Date of Service: Aug 18, 2022 History Expected Date of Delivery: Sep 05, 2022 Gestational Age in Weeks: 37 Hx : 1 Hx Para: 1 Complications Events: Routine care Intrapartal Events: Mild Preeclampsia L&D Stage1 Stage One Onset of Labor - Date: Aug 18, 2022 Onset of Labor - Time: 08:33 Monitors and Tracing Monitor Mode: External Heart Rate: 140 Monitor Accelerations: Uniform Monitor Decelerations: None Station: -3 Alf Variability: Average (6-10) Short Term Variability: Present Presentation: Vertex Vital Signs VS - Last 72 Hours, by Label 08/17/22 08/17/22 08/17/22 08/17/22 14:30 14:45 14:55 15:01 Temp 37.3 37.3 Pulse 98 90 90 90 Resp 18 18 18 18 B/P (MAP) 162/101 (121) 149/88 (108) 149/88 152/90 (110) Pulse Ox 96 94 96 O2 Delivery Room Air Room Air Room Air Room Air 08/17/22 08/17/22 08/17/22 08/17/22 15:14 15:30 15:45 16:00 Pulse 104 101 75 102 Resp 18 18 18 18 B/P (MAP) 143/90 (107) 138/88 (105) 147/93 (111) 145/84 (104) O2 Delivery Room Air Room Air Room Air Room Air 08/17/22 08/17/22 08/17/22 08/17/22 17:00 17:02 18:00 19:02 Temp 37.1 Pulse 90 90 91 93 Resp 18 18 18 18 B/P (MAP) 144/80 (101) 147/88 (107) 132/78 (96) Pulse Ox 98 O2 Delivery Room Air Room Air Room Air Room Air 08/17/22 08/17/22 08/17/22 08/17/22 19:45 20:45 21:45 22:51 Temp 37.0 37.0 37.0 Pulse 75 75 68 85 Resp 18 18 18 18 B/P (MAP) 116/60 (78) 124/68 (86) 155/93 (113) 156/99 (118) Pulse Ox 98 O2 Delivery Room Air Room Air Room Air Room Air 3/08/18/22 08/18/22 08/18/22 23:02 00:02 01:11 02:03 Temp 37.0 37.0 37.0 37.0 Pulse 78 70 72 62 Resp 18 18 18 18 B/P (MAP) 141/82 (101) 138/69 (92) 153/86 (108) 129/71 (90) O2 Delivery Room Air Room Air Room Air Room Air 08/18/22 08/18/22 08/18/22 08/18/22 03:03 04:04 05:03 05:38 Temp 36.9 37.0 37.0 Pulse 73 70 69 74 Resp 16 16 18 18 B/P (MAP) 146/85 (105) 165/92 (116) 163/94 (117) 123/76 (92) Pulse Ox 98 98 O2 Delivery Room Air Room Air Room Air Room Air 08/18/22 08/18/22 08/18/22 08/18/22 06:14 07:15 08:00 08:19 Temp 37.0 36.0 Pulse 69 70 65 Resp 18 18 18 B/P (MAP) 138/73 (94) 122/76 (91) 120/77 (91) Pulse Ox 99 96 98 O2 Delivery Room Air Room Air Room Air 08/18/22 08/18/22 08/18/22 08/18/22 08:30 09:00 09:15 09:30 Pulse 76 69 64 71 Resp 18 18 18 18 B/P (MAP) 178/85 (116) 145/80 (101) 157/78 (104) Pulse Ox 99 98 97 97 O2 Delivery Room Air Room Air Room Air Room Air 08/18/22 08/18/22 08/18/22 08/18/22 09:45 09:50 09:55 10:00 Pulse 92 81 74 64 Resp 18 18 18 18 B/P (MAP) 174/99 (124) 138/87 (104) 130/80 (97) 148/88 (108) Pulse Ox 97 99 98 98 O2 Delivery Room Air Room Air Room Air Room Air 08/18/22 08/18/22 08/18/22 08/18/22 10:10 10:15 10:20 10:25 Temp 36.1 Pulse 71 71 67 69 Resp 18 18 18 18 B/P (MAP) 148/82 (104) 145/81 (102) 145/88 (107) 136/86 (103) Pulse Ox 97 99 98 100 O2 Delivery Room Air Room Air Room Air Room Air 08/18/22 08/18/22 08/18/22 08/18/22 10:30 10:45 11:00 11:15 Pulse 60 62 65 76 Resp 18 18 18 18 B/P (MAP) 141/78 (99) 134/77 (96) 146/84 (104) 139/94 (109) Pulse Ox 99 97 97 97 O2 Delivery Room Air Room Air Room Air Room Air 08/18/22 08/18/22 11:30 11:45 Pulse 78 79 Resp 18 18 B/P (MAP) 124/76 (92) 115/88 (97) Pulse Ox 99 100 O2 Delivery Room Air Room Air Signs of Distress by FHT Signs of Distress no Rupture of Membranes Spontaneous Ruture of Membrane: No Amniotic Membrane Rupture Time: 0833 Amniotic Membrane Fluid Desc.: Clear Vaginal Bleeding Description: None L&D Stage2 Stage Two Stage II Date: Aug 18, 2022 Stage II Time: 16:17 Monitors and Tracing Monitor Mode: External Heart Rate: 140 Monitor Accelerations: Uniform Monitor Decelerations: None Document Management Analyst Variability: Average (6-10) Short Term Variability: Present Position: Left Occiput Anterior Presentation: Vertex Signs of Distress by FHT Signs of Distress no Cord Descript/Complications Cord Vessel Description: 3 Vessels Delivery Type Delivery Method: Spontaneous Vaginal Anterior Shoulder: Left Episiotomy/Perineal Laceration Laceraction(s)/Extensions: Yes Episiotomy Description: Midline Sutures Used: Vicryl Condition of Delivery 1 minute Comment: 8 5 minute Comment: 9 Condition of Condition of Infant: Living Exam: No Observed Abnormalities Resuscitation Resuscitation: N/A - Spontaneous Resp L&D Stage3 Stage Three Stage III Date: Aug 18, 2022 Stage III Time: 16:22 Pictocin Pitocin Administration mu/min: 8 Pitocin ml/hr: 8 Pitocin Administration Comment: pitocin increased Placenta Delivery Placenta Delivery: Spontaneous Delivery Summary Summary Estimated blood loss (mL): 100 Condition of Delivery Examined: Cervix Examined Post Hemorrhage: No Intervention Required none CHASE AMADOR MD Aug 18, 2022 17:20
[2022-08-18] MEDS ORDERED: BENZOCAINE/MENTHOL (DERMOPLAST) 56 ML CAN TP PRN (17:30)
[2022-08-18] MEDS ORDERED: WITCH HAZEL(TUCKS) 40 EA JAR TOP PRN (17:30)
[2022-08-18] MEDS ORDERED: TETANUS,DIPTH,PERTUSS P/F (BOOSTRIX) 0.5 ML VIAL IM ONE (17:30)
[2022-08-18] MEDS ORDERED: NALOXONE 0.4 MG/ML 1 ML (NARCAN) VIAL IV PRN (17:30)
[2022-08-18] MEDS ORDERED: MEASLES,MUMPS,RUBELLA 1 EA INJ SQ ONE (17:30)
[2022-08-18] MEDS: ACETAMINOPHEN 500 MG TAB (TYLENOL) PO SCH (18:46)
[2022-08-18] MEDS: IBUPROFEN 600 MG (MOTRIN) TAB PO SCH (18:46)
[2022-08-18] MEDS ORDERED: CATHETER FLUSH 10 ML SYR IV SCH (22:00)
[2022-08-19] VITALS (9 sets, daily range): BP systolic 127–146; BP diastolic 81–99
[2022-08-19] MEDS: DOCUSATE SODIUM 100 MG (COLACE) CAP PO SCH ×3 (00:17→21:09)
[2022-08-19] MEDS: IBUPROFEN 600 MG (MOTRIN) TAB PO SCH ×4 (00:17→21:09)
[2022-08-19] MEDS: ACETAMINOPHEN 500 MG TAB (TYLENOL) PO SCH ×2 (00:41→21:09)
[2022-08-19] MEDS: MAGNESIUM SULFATE DRIP 500 ML IV SCH (05:22)
[2022-08-19] MEDS: D5 LR IV SOLUTION 1,000 ML IV SCH (06:08)
[2022-08-19 06:33] LABS: BASOPHILS # (AUTO) 0.1 10^3/uL (0.0-0.1); BASOPHILS % (AUTO) 0 % (0-10); EOSINOPHILS # (AUTO) 0.1 10^3/uL (0.0-0.3); EOSINOPHILS % (AUTO) 1 % (0-10); HEMATOCRIT 33 % (35-52); HEMOGLOBIN 11.4 g/dL (11.5-16.0); LYMPHOCYTES # (AUTO) 2.4 10^3/uL (1.0-4.0); LYMPHOCYTES % (AUTO) 17 % (12-44); MEAN CORPUSCULAR HEMOGLOBIN 32 pg (25-34); MEAN CORPUSCULAR HGB CONC 35 g/dL (32-36); MEAN CORPUSCULAR VOLUME 92 fL (80-99); MEAN PLATELET VOLUME 9.9 fL (9.0-12.2); MONOCYTES # (AUTO) 0.9 10^3/uL (0.0-1.0); MONOCYTES % (AUTO) 6 % (0-12); NEUTROPHILS # (AUTO) 11.1 10^3/uL (1.8-7.8); NEUTROPHILS % (AUTO) 76 % (42-75); PLATELET COUNT 257 10^3/uL (130-400); WHITE BLOOD COUNT 14.7 10^3/uL (4.3-11.0)
--- NOTE | 2022-08-19 08:43 | Progress Note ---
Subjective Subjective/Events-last exam patient reports she feels fine this morning. she has not been walking now much since Martinez catheter in place. She does not voice any significant pelvic pain or vaginal bleeding. Objective Exam Last Set of Vital Signs Vital Signs Date Time Temp Pulse Resp B/P (MAP) Pulse Ox O2 Delivery O2 Flow Rate FiO2 08/19/22 06:08 35.5 83 18 138/99 (112) 98 Room Air Capillary Refill : Less Than 3 Seconds I&O Intake and Output 08/19/22 00:00 Intake Total 2800 ml Output Total 4800 ml Balance -2000 ml Intake Oral 600 ml IV Total 2200 ml Output Urine Total 4800 ml Blood Loss Quantification Method 100 ml General: No Acute Distress Lungs: Clear to Auscultation Heart: Regular Rate Abdomen: Soft (With uterus firm) Results/Procedures Lab Laboratory Tests 08/19/22 05:21: White Blood Count 14.7H, Red Blood Count 3.58L, Hemoglobin 11.4L, Hematocrit 33L , Mean Corpuscular Volume 92, Mean Corpuscular Hemoglobin 32, Mean Corpuscular Hemoglobin Concent 35, Red Cell Distribution Width 12.9, Platelet Count 257, Mean Platelet Volume 9.9, Immature Granulocyte % (Auto) 1, Neutrophils (%) (Auto) 76H, Lymphocytes (%) (Auto) 17, Monocytes (%) (Auto) 6, Eosinophils (%) (Auto) 1, Basophils (%) (Auto) 0, Neutrophils # (Auto) 11.1H, Lymphocytes # (Auto) 2.4, Monocytes # (Auto) 0.9, Eosinophils # (Auto) 0.1, Basophils # (Auto) 0.1, Immature Granulocyte # (Auto) 0.1 Microbiology 08/17/22 Urine Culture - Final, Complete >=3 Gram Positive Isolates See Comments Assessment/Plan Assessment/Plan Admission Dx 1. Status post spontaneous vaginal deliverydoing well -continue with care orders 2. Preeclampsia -she required magnesium sulfate and was on 1 g/h -magnesium sulfate will be discontinued this morning -continue to monitor her blood pressure throughout the day -we will begin ambulation CHASE AMADOR MD Aug 19, 2022 08:43
[2022-08-19] MEDS ORDERED: MAGNESIUM 4 GM/100 ML IVPB 100 ML IV ONE (08:45)
[2022-08-19 09:23] LABS: ALBUMIN 2.9 GM/DL (3.2-4.5); BILIRUBIN,TOTAL 1.2 MG/DL (0.1-1.0); CREATININE SERUM 0.72 MG/DL (0.60-1.30); POTASSIUM 2.9 MMOL/L (3.6-5.0); TOTAL PROTEIN 5.7 GM/DL (6.4-8.2)
--- NOTE | 2022-08-19 12:08 | Anesthesia-Regional Post-Op ---
Regional Patient Condition Mental Status: Alert, Oriented x3 Circulation: Same as Pre-Op Headache: Absent Sensation: Full Recovery Motor Block: Absent Post Op Complications Complications None Follow Up Care/Instructions Patient Instructions None needed. Anesthesia/Patient Condition Patient is doing well, no complaints, stable vital signs, no apparent adverse anesthesia problems. No complications reported per nursing. KAREEM SANDHU CRNA Aug 19, 2022 12:08
[2022-08-19] MEDS: CATHETER FLUSH 10 ML SYR IV SCH (21:26)
[2022-08-20 02:56] VITALS: BP 147/72
[2022-08-20 08:40] VITALS: BP 161/91
[2022-08-20] MEDS: IBUPROFEN 600 MG (MOTRIN) TAB PO SCH (08:42)
[2022-08-20] MEDS: DOCUSATE SODIUM 100 MG (COLACE) CAP PO SCH (08:43)
[2022-08-20] MEDS: ACETAMINOPHEN 500 MG TAB (TYLENOL) PO SCH (08:43)
--- NOTE | 2022-08-20 09:19 | Discharge Inst-Women's Service ---
Discharge Inst-Women's Serv Depart Medication/Instructions New, Converted or Re-Newed RX: Other Instructions may take [id number] ibuprofen 200 mg tablets and take 2 or 3 as needed every 6 hours for cramps. Problems Reviewed?: Yes Consults/Follow Up Additional Follow Up: Yes (With Dr. Sage in 6 weeks) Activity Activity: Activity as Tolerated Driving Instructions: No Driving for 1 Week Nothing Inside Vagina: No [place] (For 6 weeks) Diet Discharge Diet: Regular Diet Return to The Hospital For: As below Symptoms to Report to : Bleeding Excessive, Pain Increased, Fever Over 101 Degrees F, Vaginal Discharge Foul For Any Problems or Questions: Contact Your Physician CHASE AMADOR MD Aug 20, 2022 09:19
--- NOTE | 2022-08-20 09:25 | Discharge Summary ---
Diagnosis/Chief Complaint Date of Admission Aug 17, 2022 at 16:06 Date of Discharge August 20, 2022 Admission Diagnosis Admission Diagnosis 1. Intrauterine at 37 weeks 2 days gestation 2. Preeclampsia Discharge Diagnosis 1. Intrauterine at 37 weeks 2 days gestation 2. Preeclampsia Chief Complaint/HPI Chief Complaint/HPI 27-year-old 1 now term 1 L1 who initially presented to women's services during the afternoon of August 17, 2022 with preeclampsia. She was subsequently admitted and monitored. Ultimately in the morning of August 18 she underwent amniotomy due to her clinical symptoms and signs of severe preeclampsia. Discharge Summary-OBS Procedures 1. Epidural per anesthesia 2. Spontaneous vaginal delivery 3. Repair of midline episiotomy Discharge Physical Examination Allergies: Coded Allergies: Sulfa (Sulfonamide Antibiotics) (Unverified Allergy, Unknown, 08/18/22) Vitals & I&Os Intake and Output 08/20/22 00:00 Output Total 575 ml Balance -575 ml Vital Sign - Last 12Hours Date Time Temp Pulse Resp B/P (MAP) Pulse Ox O2 Delivery O2 Flow Rate FiO2 08/20/22 02:56 36.6 58 18 147/72 (97) 98 Room Air General Appearance: No Acute Distress Respiratory: Clear to Auscultation Cardiovascular: Regular Rate Abdominal: Soft (With uterus firm) Skin: No Rashes Psych/Mental Status: Mental Status NL Hospital Course Was the Problem List Reviewed?: Yes patient was admitted during the afternoon of August 17, 2022 for suspected preeclampsia. Laboratory as well as blood pressures were significant enough for severe preeclampsia and she was admitted. She was placed on magnesium sulfate 1 g/h. Amniotomy was performed in the morning of August 18, 2022. She required Pitocin augmentation to achieve adequate contraction pattern. Her blood pressure remained stable while on magnesium sulfate. Ultimately she delivered a term viable male over a midline episiotomy. had received Apgars of 8 at 1 minute and 9 at 5 minutes. following delivery she underwent care orders. Her Martinez catheter remained in place along with magnesium sulfate overnight until the a.m. of August 19, 2022. Her laboratory was monitored and she had evidence for persistent elevated liver enzymes but the were stable and her platelet count was noted to be normal. She did not voice any symptoms of headache or nausea. Her course continued to improve clinically during the course of August 19 in arch 19. In the a.m. she had a regular diet and was ambulatory. She voiced no complaints or abnormal but vaginal bleeding. Her hemoglobin prior to delivery was 12.4 and after delivery 11.4. She was felt ready for dismissal during the late morning of August 20 and was instructed to follow-up with Dr. Sage in 6 weeks. I informed her most likely at her sons checkup she may want to have her blood pressure checked as well. Labs Microbiology 08/17/22 Urine Culture - Final, Complete >=3 Gram Positive Isolates See Comments Discharge Instructions to patient/family Please see electronic discharge instructions given to patient. Discharge Medications Reviewed and agree with Discharge Medication list on patient's Discharge Instruction sheet CHASE AMADOR MD Aug 20, 2022 09:25
[2022-08-20 10:08] LABS: ALBUMIN 3.1 GM/DL (3.2-4.5); POTASSIUM 3.3 MMOL/L (3.6-5.0)
[2022-08-20 10:09] LABS: CALCIUM 8.6 MG/DL (8.5-10.1)
[2022-08-20 10:10] LABS: TOTAL PROTEIN 5.8 GM/DL (6.4-8.2)
[2022-08-20 10:12] LABS: BILIRUBIN,TOTAL 0.7 MG/DL (0.1-1.0)
[2022-08-20 10:14] LABS: CREATININE SERUM 0.67 MG/DL (0.60-1.30)
== END 2022-08-20 11:10 | disposition home or self-care (01) | DRG 807 ==
LOC: WSo 14:19 → LDRP 14:19 → WSo 16:05 → LDRP 16:06
PROVIDERS: ADMIT Obstetrics & Gynecology; ATTEND Obstetrics & Gynecology
PROC: 3E0DXGC Introduction of Other Therapeutic Substance into Mouth and Pharynx, External Approach (ICD-10-PCS; 2022-08-17)
PROC: 10E0XZZ Delivery of Products of Conception, External Approach (ICD-10-PCS; principal; 2022-08-18)
PROC: 10907ZC Drainage of Amniotic Fluid, Therapeutic from Products of Conception, Via Natural or Artificial Opening (ICD-10-PCS; 2022-08-18)
PROC: 10H07YZ Insertion of Other Device into Products of Conception, Via Natural or Artificial Opening (ICD-10-PCS; 2022-08-18)
PROC: 0W8NXZZ Division of Female Perineum, External Approach (ICD-10-PCS; 2022-08-18)
DX: O14.14 Severe pre-eclampsia complicating childbirth (principal); Z37.0 Single live birth; Z3A.37 37 weeks gestation of pregnancy; Z88.2 Allergy status to sulfonamides
CPT/HCPCS: 36415; 80053; 81000; 82570; 83615; 83735; 84156; 84550; 85025; 86780; 86850; 86900; 86901; 87088; 99213